=== PATIENT | female | born 1975 | race American Indian/Alaskan Native ===

== ENCOUNTER 2016-08-23 07:26 | Day surgery (SDC) | payer BC ==
[2016-08-23] MEDS ORDERED: Lactated Ringer's 500 ML IV ONE (07:57)
[2016-08-23] MEDS ORDERED: Propofol 10 mg/ml Inj (20 ML) ONE (08:35)
[2016-08-23 09:05] VITALS: TEMP 98
[2016-08-23 09:20] VITALS: BP 102/60; PULSE 108; RESP 19; O2SAT 96
== END 2016-08-23 12:08 | disposition home or self-care (01) ==
LOC: H.ENDO 07:26
PROVIDERS: ATTEND Internal Medicine Gastroenterology
DX: Z12.11 Encounter for screening for malignant neoplasm of colon (principal); K64.8 Other hemorrhoids; Z85.3 Personal history of malignant neoplasm of breast; K21.9 Gastro-esophageal reflux disease without esophagitis; K59.00 Constipation, unspecified
CPT/HCPCS: 45378; 88305; J2704; J7120